=== PATIENT | male | born 2000 | race African-American/Black ===

== ENCOUNTER 2018-05-11 10:31 | Inpatient (IN) | payer MEDICAID ==
[~2018-05-11] VITALS: Ht 185.4 cm; Wt 75.3 kg
[2018-05-11] MEDS ORDERED: DiphenhydrAMINE HCL 50 MG/ML VIAL ONE (13:24)
[2018-05-11] MEDS ORDERED: HALOPERIDOL LACTATE 5 MG/ML VIAL ONE (13:24)
[2018-05-11] MEDS ORDERED: LORazepam 2 MG/ML VIAL ONE (13:25)
[2018-05-11] MEDS ORDERED: HALOPERIDOL 5 MG TABLET PO ONE (13:30)
[2018-05-11] MEDS ORDERED: DiphenhydrAMINE HCL 50 MG/ML VIAL IM ONE (13:30)
[2018-05-11] MEDS ORDERED: HALOPERIDOL LACTATE 5 MG/ML VIAL IM ONE (13:30)
[2018-05-11] MEDS ORDERED: LORazepam 2 MG/ML VIAL IM ONE (13:30)
[2018-05-11] MEDS ORDERED: LORazepam 2 MG TABLET PO ONE (13:30)
[2018-05-11 14:04] LABS: AMPHET/METH SCREEN,URINE NEGATIVE (NEGATIVE); BARBITURATE SCREEN, URINE NEGATIVE (NEGATIVE); BENZODIAZEPINES SCREEN,URINE NEGATIVE (NEGATIVE); CANNABINOID SCREEN,URINE POSITIVE (NEGATIVE); COCAINE SCREEN,URINE NEGATIVE (NEGATIVE); METHADONE SCREEN, URINE NEGATIVE (NEGATIVE); OPIATE SCREEN,URINE NEGATIVE (NEGATIVE)
[2018-05-11 14:06] LABS: PHENCYCLIDINE SCREEN,URINE NEGATIVE (NEGATIVE)
[2018-05-11] MEDS ORDERED: HALOPERIDOL 5 MG TABLET PO PRN (16:30)
[2018-05-11] MEDS ORDERED: ZOLPIDEM TARTRATE 10 MG TABLET PO PRN (16:30)
[2018-05-11 17:02] LABS: BASOPHILS % (AUTO) 0.8 % (0.0-2.0); EOSINOPHILS % (AUTO) 1.7 % (1.0-6.0); HEMATOCRIT 40.7 % (41-53); HEMOGLOBIN 13.1 g/dL (13.5-17.5); LYMPHOCYTES # (AUTO) 2.1 K/uL (1.0-4.8); LYMPHOCYTES % (AUTO) 41.2 % (22.0-44.0); MEAN CORPUSCULAR HEMOGLOBIN 26.3 pg (26.0-34.0); MEAN CORPUSCULAR HGB CONC 32.3 G/dL (31.0-37.0); MEAN CORPUSCULAR VOLUME 81 fL (80-100); MONOCYTES # (AUTO) 0.6 K/uL (0.1-1.0); MONOCYTES % (AUTO) 11.9 % (2.0-9.0); NEUTROPHILS # (AUTO) 2.2 K/uL (1.8-7.7); NEUTROPHILS % (AUTO) 44.4 % (40.0-70.0); PLATELET COUNT (AUTO) 148 K/uL (150-450); RED CELL DISTRIBUTION WIDTH 14.1 % (11.5-14.5)
[2018-05-11 17:11] LABS: ANION GAP 7 mmol/L (8-16); CALCIUM, TOTAL 9.3 mg/dL (8.8-10.5); CARBON DIOXIDE 27 mmol/L (22-29); CHLORIDE 104 mmol/L (98-107); CREATININE 1.12 mg/dL (0.60-1.30); GLOMERULAR FILTR. RATE CALC > 60 mL/min (>60); GLUCOSE,RANDOM 97 mg/dL (70-110); POTASSIUM 3.9 mmol/L (3.5-5.1); SODIUM SERUM 138 mmol/L (136-145); UREA NITROGEN, BLOOD 8 mg/dL (7-18)
[2018-05-11 17:16] LABS: ALANINE AMINOTRANSFERASE 9 U/L (12-78); ALBUMIN 3.8 g/dL (3.4-5.0); ALKALINE PHOSPHATASE 70 U/L (46-116); ASPARTATE AMINOTRANSFERASE 19 U/L (15-37); BILIRUBIN,TOTAL 1.2 mg/dL (0.1-1.0); TOTAL PROTEIN, SERUM 7.2 g/dL (6.4-8.2)
[2018-05-12 05:45] LABS: CHOL/HDL RATIO 2.9 (4.2-7.3)
[2018-05-12] MEDS: LORazepam 2 MG TABLET PO PRN (16:04)
[2018-05-12 16:05] VITALS: BP 145/90
[2018-05-12] MEDS ORDERED: CloNIDine HCL 0.1 MG TABLET PO PRN (16:15)
[2018-05-12] MEDS ORDERED: ALBUTEROL SULFATE HFA 90 MCG/PUFF 8 GM INHALER IH PRN (16:15)
[2018-05-12] MEDS ORDERED: ONDANSETRON HCL 4 MG TABLET PO PRN (16:15)
[2018-05-12] MEDS ORDERED: PETROLATUM,WHITE 71 GM JELLY TP PRN (16:15)
[2018-05-12] MEDS ORDERED: MAGNESIUM HYDROXIDE SUSPENSION 30 ML UDCUP PO PRN (16:15)
[2018-05-12] MEDS ORDERED: DOCUSATE SODIUM 100 MG CAPSULE PO PRN (16:15)
[2018-05-12] MEDS ORDERED: ACETAMINOPHEN 325 MG TABLET PO PRN (16:15)
[2018-05-12] MEDS ORDERED: LOPERAMIDE HCL 2 MG CAPSULE PO PRN (16:15)
[2018-05-12] MEDS ORDERED: MAG HYDROX/AL HYDROX/SIMETH ES 30 ML SUSPENSION UDCUP PO PRN (16:15)
[2018-05-12] MEDS ORDERED: IBUPROFEN 400 MG TABLET PO PRN (16:15)
[2018-05-13 01:25] VITALS: BP 148/93
[2018-05-13 08:37] VITALS: BP 118/81
[2018-05-13 09:38] LABS: HEMOGLOBIN A1C 5.3 % (4.5-6.2)
[2018-05-13 10:14] LABS: CHOL/HDL RATIO 2.9 (4.2-7.3); THYROID STIMULATING HORMONE 1.27 uIU/mL (0.36-3.74)
[2018-05-13 16:00] VITALS: BP 128/76
[2018-05-13] MEDS: LORazepam 2 MG TABLET PO PRN (20:14)
[2018-05-13] MEDS ORDERED: OLANZapine 5 MG TABLET PO SCH (21:00)
[2018-05-14 09:00] VITALS: BP 146/70
[2018-05-14] MEDS ORDERED: DiphenhydrAMINE HCL 50 MG/ML VIAL ONE (11:28)
[2018-05-14] MEDS ORDERED: HALOPERIDOL LACTATE 5 MG/ML VIAL ONE (11:28)
[2018-05-14] MEDS ORDERED: LORazepam 2 MG/ML VIAL ONE (11:28)
[2018-05-14 16:23] VITALS: BP 127/65
[2018-05-14] MEDS ORDERED: OLAN5TAB2 PO (18:46)
== END 2018-05-14 19:05 | disposition home or self-care (01) | DRG 751 ==
LOC: EMS 10:31 → B3A 05-12 14:32
PROVIDERS: ADMIT Psychiatry & Neurology Psychiatry; ATTEND Psychiatry & Neurology Psychiatry
DX: F29 Unspecified psychosis not due to a substance or known physiological condition (principal); R45.850 Homicidal ideations; E80.6 Other disorders of bilirubin metabolism; D64.9 Anemia, unspecified; F19.10 Other psychoactive substance abuse, uncomplicated; F90.9 Attention-deficit hyperactivity disorder, unspecified type; F12.10 Cannabis abuse, uncomplicated; F41.9 Anxiety disorder, unspecified; R45.1 Restlessness and agitation; Z79.899 Other long term (current) drug therapy; Z59.0 Homelessness; Z71.89 Other specified counseling
CPT/HCPCS: 83036; 84443; 87081; 96372; 99285; G0480; J1200; J1630; J2060; Q0162